=== PATIENT | male | born 1975 | race Two or more races ===

== ENCOUNTER 2020-09-05 15:02 | Outpatient (CLI) | payer OTHER, SELFPAY | END 2020-09-05 15:03 | disposition home or self-care (01) | LOC: ANHCOVIDVC 15:02 | PROVIDERS: PCP Family Medicine | DX: Z23 Encounter for immunization (principal) | CPT/HCPCS: 0001A; 91300 ==

== ENCOUNTER 2020-09-26 14:57 | Outpatient (CLI) | payer OTHER, SELFPAY | END 2020-09-26 14:58 | disposition home or self-care (01) | LOC: ANHCOVIDVC 14:57 | PROVIDERS: PCP Family Medicine | DX: Z23 Encounter for immunization (principal) | CPT/HCPCS: 0002A; 91300 ==